=== PATIENT | male | born 1970 | race Caucasian/White ===

== ENCOUNTER 2023-06-28 13:49 | Outpatient (CLI) | payer BC, SELFPAY | END 2023-06-28 13:50 | disposition home or self-care (01) | PROVIDERS: Visit Provider Nurse Practitioner Family | DX: Z00.00 Encounter for general adult medical examination without abnormal findings (principal); I10 Essential (primary) hypertension; Z13.6 Encounter for screening for cardiovascular disorders | CPT/HCPCS: 80053; 80061 ==

== ENCOUNTER 2024-08-14 09:42 | Outpatient (CLI) | payer BC, SELFPAY | END 2024-08-14 09:43 | disposition home or self-care (01) | LOC: FRMREF 09:44 | PROVIDERS: PCP Nurse Practitioner Family; Visit Provider Nurse Practitioner Family | DX: E78.5 Hyperlipidemia, unspecified (principal); I10 Essential (primary) hypertension; Z12.5 Encounter for screening for malignant neoplasm of prostate | CPT/HCPCS: 80053; 80061; G0103 ==

== ENCOUNTER 2024-09-05 09:05 | Outpatient (CLI) | payer BC, SELFPAY | END 2024-09-05 09:06 | disposition home or self-care (01) | LOC: NFLDREF 09-13 16:38 | PROVIDERS: PCP Nurse Practitioner Family; Referring Provider Nurse Practitioner Family; Visit Provider Nurse Practitioner Family | DX: R53.83 Other fatigue (principal) | CPT/HCPCS: 84403 ==

== ENCOUNTER 2024-09-08 06:35 | Outpatient (CLI) | payer BC, SELFPAY ==
--- NOTE | 2024-09-08 07:54 | P.ANES_ITS ---
Anesthesia Charges Start Date/Time Anesthesia Start Date: 09/08/24 Anesthesia Start Time: 07:23 Stop Date/Time Anesthesia Stop Date: 09/08/24 Anesthesia Stop Time: 07:52 Coding CPT Codes CPT Codes: RAFIQ LWR INTST NDSC NOS - [id number] ([id number]) P2 - PATIENT W/MILD SYST DISEASE, QX - CW OPERATOR SVC W/ MD MED DIRECTION, QK - LENS MOLDER 2-4 CNCRNT ANES PROC
--- NOTE | 2024-09-08 07:54 | W.ANESCHARGE ---
Anesthesia Charges Start Date/Time Anesthesia Start Date: 09/08/24 Anesthesia Start Time: 07:23 Stop Date/Time Anesthesia Stop Date: 09/08/24 Anesthesia Stop Time: 07:52 Coding CPT Codes CPT Codes: RAFIQ LWR INTST NDSC NOS - [id number] ([id number]) P2 - PATIENT W/MILD SYST DISEASE, QX - GRIEVANCE AND APPEALS COORDINATOR SVC W/ MD MED DIRECTION, QK - BAG LOADER MACHINE OPERATOR 2-4 CNCRNT ANES PROC
--- NOTE | 2024-09-08 08:56 | P.ANES_ITS ---
Anesthesia Charges Start Date/Time Anesthesia Start Date: 09/08/24 Anesthesia Start Time: 07:23 Stop Date/Time Anesthesia Stop Date: 09/08/24 Anesthesia Stop Time: 07:52 Coding CPT Codes CPT Codes: RAFIQ LWR INTST NDSC NOS - [id number] ([id number]) QK - FOUNTAIN ROLLER ASSEMBLER 2-4 CNCRNT RAFIQ PROC, QX - FRUIT GRADER SVC W/ MD MED DIRECTION, P2 - PATIENT W/MILD SYST DISEASE
--- NOTE | 2024-09-08 08:56 | W.ANESCHARGE ---
Anesthesia Charges Start Date/Time Anesthesia Start Date: 09/08/24 Anesthesia Start Time: 07:23 Stop Date/Time Anesthesia Stop Date: 09/08/24 Anesthesia Stop Time: 07:52 Coding CPT Codes CPT Codes: RAFIQ LWR INTST NDSC NOS - [id number] ([id number]) QK - MERCHANDISE EXECUTIVE 2-4 CNCRNT RAFIQ PROC, QX - CT MANAGER SVC W/ MD MED DIRECTION, P2 - PATIENT W/MILD SYST DISEASE
== END 2024-09-08 06:36 | disposition home or self-care (01) ==
LOC: OP CLINIC 06:37
PROVIDERS: PCP Nurse Practitioner Family; Visit Provider Surgery
DX: Z12.11 Encounter for screening for malignant neoplasm of colon (principal); D12.3 Benign neoplasm of transverse colon; D12.8 Benign neoplasm of rectum
CPT/HCPCS: 00811; 45385; 88305; J2704

== ENCOUNTER 2024-10-14 08:49 | Outpatient (CLI) | payer BC, SELFPAY ==
--- NOTE | 2024-10-21 11:51 | W.PM.SLEEP ---
Sleep Study Details Details Interpreting Provider: Montserrat Date of Sleep Study: 10/14/24 Sleep Study Details: STUDY TYPE:? Home unattended ? BMI:? 34.5 ORDERING PROVIDER:? Montserrat INDICATION:? Concern about sleep apnea ? SLEEP SUMMARY:? 438 minutes monitor RESPIRATORY SUMMARY:? AHI 66.3 Low oxygen 70 16.2% of study oxygen less than 90% Snoring 61.3% PERIODIC LIMB MOVEMENTS OF SLEEP:? Not record CARDIAC:? Range 55-95, mean 65.7 beats per minute IMPRESSION:? Severe obstructive sleep apnea RECOMMENDATION: CPAP or bilevel or the recommended treatments.
== END 2024-10-14 08:50 | disposition home or self-care (01) ==
LOC: SLEEP 08:49
PROVIDERS: PCP Nurse Practitioner Family; Visit Provider Otolaryngology
DX: G47.33 Obstructive sleep apnea (adult) (pediatric) (principal)
CPT/HCPCS: 95806